=== PATIENT | female | born 1955 | race Caucasian/White ===

== ENCOUNTER → 2020-06-13 | Outpatient (CLI) | payer MEDICARE | LOC: LABNPT 06:04 | PROVIDERS: ATTEND Otolaryngology Otolaryngology/Facial Plastic Surgery | DX: Z20.828 Contact with and (suspected) exposure to other viral communicable diseases (principal) | CPT/HCPCS: 87635 ==

== ENCOUNTER 2020-06-15 19:21 | Outpatient (CLI) | payer MEDICARE, OTHER | END 2020-06-16 06:50 | disposition home or self-care (01) | LOC: SLEEP 19:21 | PROVIDERS: ATTEND Nurse Practitioner | DX: G47.33 Obstructive sleep apnea (adult) (pediatric) (principal); G47.419 Narcolepsy without cataplexy | CPT/HCPCS: 95811 ==

== ENCOUNTER → 2021-01-26 | Outpatient (CLI) | payer MEDICARE | LOC: RAD 14:39 | PROVIDERS: ATTEND Physician Assistant | DX: Z12.31 Encounter for screening mammogram for malignant neoplasm of breast (principal) | CPT/HCPCS: 77063; 77067 ==